=== PATIENT | female | born 1980 | race Caucasian/White ===

== ENCOUNTER → 2020-02-05 | Outpatient (CLI) | payer OTHER ==
[~2020-02-05] MED LIST: Amoxicillin500 M1 PO; BENTYL20 MG PO; Cleocin HCl150 MG PO; Fludrocortison0.1 MG PO; PRED1 PO; SOLU-CORTE100 MG/2 M IJ; THYR60 PO; Zofran Odt4 MG SL
[2020-02-06 14:07] LABS: HPV 16 Negative (Negative); HPV 18 Negative (Negative); HPV OTHER HR TYPES Negative (Negative)
== END | disposition home or self-care (01) ==
LOC: LAB SHORT 15:32 → LAB 15:32
PROVIDERS: Obstetrics & Gynecology
DX: Z12.4 Encounter for screening for malignant neoplasm of cervix (principal)
CPT/HCPCS: 87624; G0123